=== PATIENT | female | born 1940 | race Caucasian/White ===

== ENCOUNTER 2021-01-25 12:53 | Emergency (ER) | payer MEDICARE ==
[~2021-01-25] VITALS: Ht 165.1 cm; Wt 74.8 kg
[2021-01-25] MEDS ORDERED: BENZ100A PO (13:16)
[2021-01-25] MEDS ORDERED: ONDA4 PO (13:16)
== END 2021-01-25 15:18 | disposition home or self-care (01) ==
LOC: ER 12:53
DX: U07.1 COVID-19 (principal)
CPT/HCPCS: 36415; 96374; 99283-25; J1885; M0243; Q0243

== ENCOUNTER 2023-05-05 08:42 | Emergency (ER) | payer MEDICARE ==
[~2023-05-05] VITALS: Ht 165.1 cm; Wt 72.6 kg
[~2023-05-05 08:42] MED LIST: BENZ100A PO; ONDA4 PO
[2023-05-05 08:54] VITALS: BP 135/60
[2023-05-05] MEDS ORDERED: OXYACE7.5T PO (11:27)
[2023-05-05] MEDS ORDERED: IBUP600 PO (11:27)
== END 2023-05-05 11:45 | disposition home or self-care (01) ==
LOC: ER 08:42
DX: S42.211A Unspecified displaced fracture of surgical neck of right humerus, initial encounter for closed fracture (principal); R10.2 Pelvic and perineal pain; W01.0XXA Fall on same level from slipping, tripping and stumbling without subsequent striking against object, initial encounter; Z85.3 Personal history of malignant neoplasm of breast
CPT/HCPCS: 73060; 73502; 96374; 96375; 99284-25; J1170; J1885

== ENCOUNTER 2024-03-05 06:33 | Day surgery (SDC) | payer MEDICARE ==
[~2024-03-05] VITALS: Ht 165.1 cm; Wt 75.7 kg
[~2024-03-05 06:33] MED LIST changes: +Balanced Salt Epinephrine Irrigation Solution 500 mL IR SCH; +IBUP600 PO; +Lidocaine HCl/Pf 1% 5 ML VIAL ONE; +Lidocaine HCl/Pf 1% 5 ML VIAL XX SCH; +MARIJUANA; +Moxifloxacin HCL 0.5 MG/0.1 ML 0.4MLSYR LEFTEYE SCH; +NS 500 ML IV ONE; +OXYACE7.5T PO; +PHENYLEPHRINE\\TROPICAMIDE\\TETRACAINE OPHTHALMIC DILATING SOLN LEFTEYE PRN; +Percocet 5-3251 EACH PO; +Povidone-Iodine 450 DROP/30 ML Solution LEFTEYE SCH; +Povidone-Iodine 450 DROP/30 ML Solution ONE; +Tetracaine HCl/Pf 0.5% Opth Soln 4 ml ONE; +Triamcinolone Inj Susp 40 MG / ML 1ML Vial INJ SCH; +Triamcinolone Inj Susp 40 MG / ML 1ML Vial ONE
[2024-03-05] MEDS ORDERED: NS 500 ML IV ONE (07:16)
[2024-03-05] MEDS ORDERED: Midazolam HCl 1MG / ML 2ML Vial ONE (07:51)
[2024-03-05 08:16] VITALS: BP 120/62
== END 2024-03-05 08:30 | disposition home or self-care (01) ==
LOC: ORSCSDS 06:33
PROVIDERS: Ophthalmology
PROC: 08RK3JZ Replacement of Left Lens with Synthetic Substitute, Percutaneous Approach (ICD-10-PCS; principal; 2024-03-05 08:00)
DX: H25.813 Combined forms of age-related cataract, bilateral (principal); Z79.899 Other long term (current) drug therapy
CPT/HCPCS: J2003; J2250; J3301; J7040; V2632